=== PATIENT | female | born 1995 | race Caucasian/White ===

== ENCOUNTER 2017-01-25 16:48 | Emergency (ER) | payer OTHER ==
[~2017-01-25] VITALS: Ht 175.3 cm; Wt 83.9 kg
[2017-01-25] MEDS ORDERED: MULT1CHW39 PO (17:00)
[2017-01-25] MEDS ORDERED: NORCO, ANEXSIA 5/325MG TABLET (HYDROcodone/ACETAMINOPHEN) PO ONE (17:00)
[2017-01-25] MEDS ORDERED: ADACEL/BOOSTRIX VACCINE (DIPHTH/PERTUSS/ACELL/TETANUS)0.5ML SYR (90715) IM ONE (17:15)
--- NOTE | 2017-01-25 17:50 | REPUSA ---
CLINICAL HISTORY: Trauma. TECHNIQUE: Multiple axial images were obtained through the cervical spine. Images were also reconstru cted in coronal and sagittal planes. The study was performed without IV contrast. COMMENTS: There is no fracture or spondylolisthesis visualized. The paraspinal soft tissues are unremarkable. T here are no lytic or blastic lesions. Straightening of cervical lordosis is seen, suggesting muscular spasm. There is evidence of minimal m ultilevel disk disease, demonstrated by minimal osteophytosis and endplate sclerosis. No significant disk herniation is noted at any level. Canal and foramina remain patent. IMPRESSION: 1. No fracture or spondylolisthesis. 2. Straightening of cervical lordosis is seen, suggesting muscular spasm. 3. Minimal multilevel spondylosis. Thank you for your kind referral of this patient.
[2017-01-25] MEDS ORDERED: NORCOTAB PO (18:37)
[2017-01-25] MEDS ORDERED: NORCO 5/325MG TABLET (BULK FOR ED) PO ONE (18:45)
[2017-01-25 19:16] VITALS: BP 123/63
--- NOTE | 2017-01-26 07:26 | REP ---
LEFT SHOULDER, THREE VIEWS: There is no evidence of an acute fracture, dislocation or intrinsic bone disease. IMPRESSION: No fracture or dislocation. Signed by Roman Villeda MD 01/26/2017 07:51 P
== END 2017-01-25 19:18 | disposition home or self-care (01) ==
LOC: EDBD 16:48 → M ED 18:03
DX: S16.1XXA Strain of muscle, fascia and tendon at neck level, initial encounter (principal); S13.4XXA Sprain of ligaments of cervical spine, initial encounter; T14.8 Other injury of unspecified body region; V86.09XA Driver of other special all-terrain or other off-road motor vehicle injured in traffic accident, initial encounter; Y92.89 Other specified places as the place of occurrence of the external cause; Y93.89 Activity, other specified; Y99.8 Other external cause status

== ENCOUNTER 2019-02-18 11:03 | Day surgery (SDC) | payer OTHER ==
[~2019-02-18] VITALS: Ht 177.8 cm; Wt 95.3 kg
[~2019-02-18 11:03] MED LIST: DEPO40IN IJ; HYDR-3715 PO; LR 1,000 ML IV ONE; MULT200T7 PO; ZYRTTAB8 PO; dexameTHASONE 4 MG/ML 1ML VIAL (J1100) IV ONE
[2019-02-18 13:21] LABS: URINE PREG TEST NEGATIVE (NEGATIVE)
[2019-02-18] MEDS ORDERED: METHYLENE BLUE 0.5% (5MG/ML) 10 ML AMP (PROVAYBLUE)(Q9968 PER 1MG) As Ordered ONE (14:59)
[2019-02-18] MEDS ORDERED: LIDOCAINE W/EPINEPHRINE 1% 20ML VIAL As Ordered ONE (14:59)
[2019-02-18] MEDS ORDERED: EPINEPHrine 1MG/ML INJ 30ML MD-VIAL As Ordered ONE (15:00)
[2019-02-18] MEDS ORDERED: PROPOFOL 200 MG/20 ML VIAL As Ordered ONE (15:03)
[2019-02-18] MEDS ORDERED: LIDOCAINE 2% INJ 100 MG/5 ML SDV (FOR ANES.) As Ordered ONE (15:03)
[2019-02-18] MEDS ORDERED: ROCURONIUM BROMIDE 50 MG/5 ML VIAL As Ordered ONE (15:03)
[2019-02-18] MEDS ORDERED: fentaNYL 250 MCG/5 ML INJECTION (J3010) As Ordered ONE (15:05)
[2019-02-18] MEDS ORDERED: MIDAZOLAM INJ 2 MG/2 ML VIAL (J2250) As Ordered ONE (15:05)
[2019-02-18] MEDS ORDERED: dexameTHASONE 4 MG/ML 1ML VIAL (J1100) As Ordered ONE (15:25)
[2019-02-18] MEDS ORDERED: ONDANSETRON 4MG/2ML VIAL (J2405) As Ordered ONE (15:27)
[2019-02-18] MEDS ORDERED: KETOROLAC 60 MG/2 ML VIAL (J1885) As Ordered ONE (15:30)
[2019-02-18] MEDS ORDERED: NEOSTIGMINE 10 MG/10 ML VIAL (J2710) As Ordered ONE (15:39)
[2019-02-18] MEDS ORDERED: GLYCOPYRROLATE INJ 0.2 MG/ML 2 ML VIAL As Ordered ONE (15:39)
[2019-02-18] MEDS ORDERED: ONDANSETRON 4MG/2ML VIAL (J2405) IV PRN (16:30)
[2019-02-18] MEDS ORDERED: METOCLOPRAMIDE INJ 10MG/2ML VIAL (J2765) IV PRN (16:30)
[2019-02-18] MEDS ORDERED: fentaNYL 100 MCG/2 ML INJECTION (J3010) IV PRN (16:30)
[2019-02-18] MEDS ORDERED: PERCOCET 5MG/325MG TAB PO PRN (16:30)
[2019-02-18] MEDS ORDERED: LR 1,000 ML IV SCH ×2 (16:30)
[2019-02-18 17:10] VITALS: BP 157/84
--- NOTE | 2019-02-18 20:27 | RO ---
DATE OF PROCEDURE: 02/18/2019 PREPROCEDURE DIAGNOSIS: Acquired nasal deformity. POSTPROCEDURE DIAGNOSIS: Acquired nasal deformity. PROCEDURE PERFORMED: Closed reduction of nasal fracture. SURGEON: David Richardson MD FLEET DIRECTOR: ANESTHESIA: General. CLINICAL PREAMBLE: This 24-year-old woman sustained an injury to the nose from a kick by a cow to her nose. Physical examination revealed deviation of the nasal pyramid to the left. Management options including surgery listed above have been discussed. Patient understood and consented to the procedure. DESCRIPTION OF PROCEDURE: The patient was identified in preop holding and brought to the operating room in stable condition. In supine position on the operating table, patient received general anesthesia followed by orotracheal intubation without incident. The patient was prepped and draped in the usual fashion for the procedure. Both sides of the nasal cavity were packed using pledgets soaked in 1:1000 epinephrine. The pledgets were then removed. Inspection of the nasal anatomy revealed a shifted nasal pyramid to the left side. The nasal septum was also noted to be shifted to the left side as well. Using the Boies elevator, the nasal septum was realigned to a more midline position. The Asch forceps were used to straighten the nasal septum as well as realigning the nasal pyramid back into midline position. Hemostasis was achieved. The Maicol splint was applied. At the end of the procedure, sponge and instrument counts were correct. No complications were encountered. Estimated blood loss 10 mL. General anesthesia was reversed, and the patient was extubated and brought to the recovery room in stable condition.
== END 2019-02-18 17:20 | disposition home or self-care (01) ==
LOC: M SDC 11:03
PROVIDERS: ATTEND Otolaryngology
DX: S02.2XXA Fracture of nasal bones, initial encounter for closed fracture (principal); W55.22XA Struck by cow, initial encounter; Y92.89 Other specified places as the place of occurrence of the external cause; Y93.9 Activity, unspecified; J45.909 Unspecified asthma, uncomplicated; Z79.899 Other long term (current) drug therapy; E66.9 Obesity, unspecified; Y99.9 Unspecified external cause status
CPT/HCPCS: 21320; 84703; J1100; J1885; J2250; J2405; J2710; J3010; Q9968

== ENCOUNTER 2023-04-27 21:18 | Day surgery (SDC) | payer OTHER ==
[~2023-04-27] VITALS: Ht 175.3 cm; Wt 101.0 kg
[~2023-04-27 21:18] MED LIST changes: -LR 1,000 ML IV ONE; -dexameTHASONE 4 MG/ML 1ML VIAL (J1100) IV ONE
[2023-04-27 22:05] LABS: BASO % 0.4 % (0.0-1.0); EOS # 0.1 10^3/uL (0.0-0.5); EOS % 1.1 % (0.0-3.0); LYMPH # 1.9 10^3/uL (1.5-5.0); LYMPH % 22.9 % (24.0-44.0); MEAN CORPUSCULAR HEMOGLOBIN 29.6 pg (27.0-33.0); MEAN CORPUSCULAR HGB CONC 33.3 g/dl (32.0-36.5); MEAN CORPUSCULAR VOLUME 88.8 fl (80.0-96.0); MONO # 0.4 10^3/uL (0.0-0.8); NEUTROPHILS # 5.8 10^3/uL (1.5-8.5); NEUTROPHILS % 70.1 % (36.0-66.0); PLATELET COUNT, AUTOMATED 271 10^3/uL (150-450); RED BLOOD COUNT 4.39 10^6/uL (4.00-5.40); WHITE BLOOD COUNT 8.3 10^3/uL (4.0-10.0)
[2023-04-27 22:32] LABS: HCG, SERUM QUALITATIVE NEGATIVE (NEGATIVE)
[2023-04-27 22:33] LABS: LIPASE 33 U/L (12-53)
[2023-04-27 22:35] LABS: ALBUMIN 3.9 G/DL (3.2-5.2); ALKALINE PHOSPHATASE 52 U/L (46-116); ALT/SGPT 20 U/L (7.0-40); AST/SGOT 10 U/L (<34); BILIRUBIN,DIRECT 0.1 MG/DL (<0.4); BILIRUBIN,TOTAL 0.4 MG/DL (0.3-1.2); BLOOD UREA NITROGEN 15 MG/DL (9-23); CALCIUM LEVEL 9.1 MG/DL (8.5-10.1); CARBON DIOXIDE LEVEL 24 MMOL/L (20-31); CHLORIDE LEVEL 105 MMOL/L (98-107); CREATININE FOR GFR 0.66 MG/DL (0.55-1.30); GLOMERULAR FILTRATION RATE > 60.0 (>60); GLUCOSE, FASTING 98 MG/DL (60-100); POTASSIUM SERUM 4.1 MMOL/L (3.5-5.1); SODIUM LEVEL 138 MMOL/L (136-145); TOTAL PROTEIN 6.9 G/DL (5.7-8.2)
[2023-04-28] MEDS ORDERED: MORPHINE 4 MG/ML 1ML VIAL IV ONE (01:20)
[2023-04-28] MEDS ORDERED: ONDANSETRON 4MG 2ML VIAL IV ONE (01:20)
[2023-04-28] MEDS ORDERED: ISOVUE-370 76% 100ML VIAL As Ordered ONE (01:31)
[2023-04-28 02:57] LABS: BASO % 0.2 % (0.0-1.0); EOS # 0.1 10^3/uL (0.0-0.5); EOS % 0.5 % (0.0-3.0); HEMOGLOBIN 12.5 g/dl (12.0-15.5); LYMPH # 1.6 10^3/uL (1.5-5.0); LYMPH % 12.7 % (24.0-44.0); MEAN CORPUSCULAR HEMOGLOBIN 29.4 pg (27.0-33.0); MEAN CORPUSCULAR HGB CONC 32.9 g/dl (32.0-36.5); MEAN CORPUSCULAR VOLUME 89.4 fl (80.0-96.0); MONO # 0.5 10^3/uL (0.0-0.8); MONO % 4.2 % (2.0-8.0); NEUTROPHILS # 10.4 10^3/uL (1.5-8.5); PLATELET COUNT, AUTOMATED 266 10^3/uL (150-450); RED BLOOD COUNT 4.25 10^6/uL (4.00-5.40); WHITE BLOOD COUNT 12.7 10^3/uL (4.0-10.0)
[2023-04-28] MEDS ORDERED: MORPHINE 4 MG/ML 1ML VIAL IV PRN (05:05)
[2023-04-28] MEDS ORDERED: HOME MED LIST COMPLETE! XX SCH (05:15)
[2023-04-28] MEDS ORDERED: ONDANSETRON 4MG 2ML VIAL As Ordered ONE ×2 (06:20→07:55)
[2023-04-28] MEDS ORDERED: propofoL 200 MG/20 ML VIAL As Ordered ONE (06:20)
[2023-04-28] MEDS ORDERED: ACETAMINOPHEN 1000MG 100ML IV BAG As Ordered ONE (06:20)
[2023-04-28] MEDS ORDERED: SUGAMMADEX SODIUM 500 MG/5 ML VIAL (BRIDION) As Ordered ONE (06:20)
[2023-04-28] MEDS ORDERED: LIDOCAINE 2% 100MG/5ML SDV (FOR ANES.) As Ordered ONE (06:20)
[2023-04-28] MEDS ORDERED: ROCURONIUM BROMIDE 50MG/5ML VIAL As Ordered ONE (06:20)
[2023-04-28] MEDS ORDERED: KETOROLAC 60MG 2ML VIAL As Ordered ONE (06:20)
[2023-04-28] MEDS ORDERED: fentaNYL 100 MCG/2 ML INJECTION As Ordered ONE (06:21)
[2023-04-28] MEDS ORDERED: MIDAZOLAM INJ 2MG/2ML VIAL As Ordered ONE (06:21)
[2023-04-28] MEDS ORDERED: HYDROmorphone HCL 2MG/ML 1ML VIAL As Ordered ONE (07:35)
[2023-04-28] MEDS ORDERED: METOCLOPRAMIDE INJ 10MG/2ML VIAL As Ordered ONE (07:56)
[2023-04-28] MEDS ORDERED: diphenhydrAMINE 50MG/ML VIAL IV PRN (08:50)
[2023-04-28] MEDS ORDERED: MEPERIDINE 25 MG/ML 1ML VIAL IV PRN (08:50)
[2023-04-28] MEDS ORDERED: ONDANSETRON 4MG 2ML VIAL IV PRN (08:50)
[2023-04-28] MEDS ORDERED: METOCLOPRAMIDE INJ 10MG/2ML VIAL IV PRN (08:50)
[2023-04-28] MEDS ORDERED: LR 1,000 ML IV SCH (08:50)
[2023-04-28] MEDS ORDERED: oxyCODONE 5MG TAB PO PRN (08:50)
[2023-04-28] MEDS ORDERED: fentaNYL 100 MCG/2 ML INJECTION IV PRN (08:50)
[2023-04-28] MEDS ORDERED: IBUP80TA PO (09:40)
[2023-04-28] MEDS ORDERED: PERC5TAB12 PO (09:41)
[2023-04-28] MEDS ORDERED: PERCOCET 5MG/325MG TAB PO PRN (10:30)
[2023-04-28 10:57] VITALS: BP 118/65; TEMP 96.9; O2SAT 95
[2023-04-28] MEDS ORDERED: KETOROLAC 30 MG/ML 1ML VIAL IV SCH (15:00)
== END 2023-04-28 11:01 | disposition home or self-care (01) ==
LOC: M ED 21:18 → M SDC 21:19
PROVIDERS: ATTEND Obstetrics & Gynecology
DX: N83.202 Unspecified ovarian cyst, left side (principal); K66.1 Hemoperitoneum
CPT/HCPCS: 49322; 74177; 76830; 76856; 80048; 80076; 81001; 83605; 83690; 84703; 85025; 85652; 86140; 86850; 86900; 86901; 87635; 93976; 96374; 96375; 96376; 99285; J0131; J0665; J1100; J1170; J1885; J2250; J2405; J2765; J3010; Q9967